=== PATIENT | male | born 1975 | race Caucasian/White ===

== ENCOUNTER 2023-06-29 18:15 | Inpatient (IN) | payer BC ==
[2023-06-29] MEDS ORDERED: ONDANSETRON 4 MG/2 ML VIAL ONE ×2 (18:42→19:46)
[2023-06-29] MEDS ORDERED: NA CHLORIDE 0.9% 1,000 ML ONE (18:43)
[2023-06-29] MEDS ORDERED: MORPHINE 4 MG/ML SYR ONE ×2 (18:43→19:46)
[2023-06-29 18:53] LABS: Absolute Lymphocytes (CBC) 1.5 K/uL (0.7-4.9); Hematocrit 45.4 % (39.6-49.0); Lymphocytes % 10.3 % (15.3-44.8); MCV 90.1 fL (80-100); MPV 8.5 fL (7.6-11.3); Platelets 235 thou/uL (152-406); Protime INR 1.07; RBC Red Blood Cell Count 5.04 M/uL (4.33-5.43)
[2023-06-29 19:07] LABS: Albumin 4.4 g/dL (3.4-5.0); Bilirubin Direct 0.2 mg/dL (0-0.2); Bilirubin Indirect, Calculated 0.6 mg/dL (0.2-0.8); Bilirubin Total 0.8 mg/dL (0.2-1.0); Magnesium 1.8 mg/dL (1.6-2.4); Potassium 3.7 mEq/L (3.5-5.1); Protein, Total 8.4 g/dL (6.4-8.2); Troponin High Sensitivity 3.6 pg/mL (<58.9)
--- NOTE | 2023-06-29 19:21 | RAD REPORT ---
EXAM DESCRIPTION: Fernandez Single View06/29/2023 6:48 pm CLINICAL HISTORY: vomiting COMPARISON: No comparisons TECHNIQUE: Portable AP view of the chest. FINDINGS: The lungs are clear. No pneumothorax or effusion. The cardiomediastinal contours are unre markable. IMPRESSION: No acute cardiopulmonary process.
--- NOTE | 2023-06-29 20:03 | RAD REPORT ---
EXAM DESCRIPTION: US - Abdomen Exam Limited - 06/29/2023 7:46 pm CLINICAL HISTORY: EPIGASTRIC PAIN COMPARISON: No comparisons TECHNIQUE: Sonographic grayscale and color flow images of the right upper abdominal quadrant were o btained. FINDINGS: The gallbladder demonstrates no discrete shadowing stones. A lobulated echogenic 1.3 cm fo cus present along the dependent portion of the body may represent lobulated sludge versus nonshadowin g stones. . No pericholecystic fluid. Gallbladder wall is mildly thickened from 4 mm. The common bile duct is normal measuring 5 mm. The liver demonstrates no findings of intrahepatic biliary dilatation. Hepatic parenchymal hyperechog enicity suggesting steatosis. IMPRESSION: Lobulated gallbladder sludge versus small nonshadowing stones. Mild gallbladder wall thickening. Findings suggest acute cholecystitis in the appropriate clinical se tting. Diffuse hepatic steatosis.
[2023-06-29] MEDS ORDERED: PIPERACIL/TAZO 3.375 GM VIAL IV ONE (20:27)
[2023-06-29] MEDS ORDERED: NA CHLORIDE 0.9% 100 ML ONE (20:27)
--- NOTE | 2023-06-29 21:41 | RAD REPORT ---
EXAM DESCRIPTION: CT - Abdomen Pelvis W Contrast - 06/29/2023 8:59 pm CLINICAL HISTORY: ABD PAIN COMPARISON: No comparisons TECHNIQUE: Thin cut axial CT imaging of the abdomen and pelvis was performed following intravenous a dministration of iodinated contrast. Multiplanar reformats were generated and reviewed. All CT scans are performed using dose optimization technique as appropriate and may include automated exposure control or mA/KV adjustment according to patient size. FINDINGS: No suspicious findings in the lung bases. The liver shows diffuse parenchymal hypoattenuation suggesting steatosis. Spleen, adrenal glands, and pancreas show no suspicious findings. Gallbladder and biliary tree are also without suspicious findi ng. Symmetric renal function is seen with no hydronephrosis or suspicious renal mass. No dilated bowel loops or bowel wall thickening. Appendix is unremarkable. No free air, free fluid or inflammatory stranding. No hernia, mass or bulky lymphadenopathy. The urinary bladder is without sig nificant finding. No suspicious bony findings. IMPRESSION: No acute intra-abdominal process. Diffuse hepatic steatosis.
[2023-06-29] MEDS ORDERED: HYDROMORPHONE HCL 1 MG/ML INJ ONE (22:10)
[2023-06-29] MEDS ORDERED: NA CHLORIDE 0.9% 2,000 ML ONE (22:10)
--- NOTE | 2023-06-29 23:22 | ER ---
Nurse's Notes [facility] Name: Randy Ochoa Age: 48 yrs Sex: Male : 1975 Arrival Date: 06/29/2023 Time: 18:15 Bed 19 Private MD: Diagnosis: Acute cholecystitis;Nausea with vomiting, unspecified;Hypertensive heart disease without heart failure Presentation: 06/29 18:29 Chief complaint: Patient states: N/V/D started at 5 AM with chills and severe upper ll1 abdominal pain. Coronavirus screen: Client denies travel out of the [place] in the last 14 days. At this time, the client does not indicate any symptoms associated with coronavirus-19. Ebola Screen: Patient denies travel to an Ebola-affected area in the 21 days before illness onset. Initial Sepsis Screen: Does the patient meet any 2 criteria? No. Patient's initial sepsis screen is negative. Does the patient have a suspected source of infection? Yes: Acute abdominal pain. Risk Assessment: Do you want to hurt yourself or someone else? Patient reports no desire to harm self or others. Onset of symptoms was June 29, 2023. 18:29 Method Of Arrival: Ambulatory ll1 18:29 Acuity: KARTHIK 2 ll1 Historical: - Allergies: 18:29 No Known Allergies; ll1 - PMHx: 18:29 Hypertensive disorder; Hypercholesterolemia; ll1 - Immunization history:: Adult Immunizations up to date. - Social history:: Smoking status: Patient denies any tobacco usage or history of. Screenin:40 [facility] ED Fall Risk Assessment (Adult) History of falling in the last 3 months, cm10 including since admission No falls in past 3 months (0 pts) Confusion or Disorientation No (0 pts) Intoxicated or Sedated No (0 pts) Impaired Gait No (0 pts) Mobility Assist Device Used No (0 pt) Altered Elimination No (0 pt) Score/Fall Risk Level 0 - 2 = Low Risk Oriented to surroundings, Maintained a safe environment, Hourly rounding (assess needs \T\ fall precautionary measures) done. Abuse screen: Denies threats or abuse. Denies injuries from another. Nutritional screening: No deficits noted. Tuberculosis screening: No symptoms or risk factors identified. Assessment: 18:38 General: Appears uncomfortable, Behavior is cooperative. Pain: Complains of pain in cm10 epigastric area Pain does not radiate. Pain currently is 10 out of 10 on a pain scale. Pain began suddenly. Neuro: No deficits noted. Level of Consciousness is awake, alert, obeys commands, Oriented to person, place, time, situation. Cardiovascular: No deficits noted. Capillary refill < 3 seconds Patient's skin is warm and dry. Respiratory: No deficits noted. Airway is patent Respiratory effort is even, unlabored, Respiratory pattern is regular, symmetrical. GI: Abdomen is distended, obese, Reports diarrhea, epigastric pain, nausea, vomiting. : No deficits noted. No signs and/or symptoms were reported regarding the genitourinary system. EENT: No deficits noted. No signs and/or symptoms were reported regarding the EENT system. 19:30 Reassessment: Patient appears in no apparent distress at this time. No changes from [facility] previously documented assessment. Patient and/or family updated on plan of care and expected duration. Pain level reassessed. Patient is alert, oriented x 3, equal unlabored respirations, skin warm/dry/pink. 20:30 Reassessment: Patient appears in no apparent distress at this time. No changes from [facility] previously documented assessment. Patient and/or family updated on plan of care and expected duration. Pain level reassessed. Patient is alert, oriented x 3, equal unlabored respirations, skin warm/dry/pink. 21:30 Reassessment: Patient appears in no apparent distress at this time. No changes from [facility] previously documented assessment. Patient and/or family updated on plan of care and expected duration. Pain level reassessed. Patient is alert, oriented x 3, equal unlabored respirations, skin warm/dry/pink. 22:30 Reassessment: Patient appears in no apparent distress at this time. No changes from 7 previously documented assessment. Patient and/or family updated on plan of care and expected duration. Pain level reassessed. Patient is alert, oriented x 3, equal unlabored respirations, skin warm/dry/pink. 23:30 Reassessment: Patient appears in no apparent distress at this time. Patient and/or jw7 family updated on plan of care and expected duration. Pain level reassessed. Patient is alert, oriented x 3, equal unlabored respirations, skin warm/dry/pink. Patient states feeling better. Patient states symptoms have improved. 06/30 11:22 Reassessment: attempted to call report to 2nd floor. no answer at this time. kc6 Vital Signs: 06/29 18:29 BP 169 / 128; Pulse 96; Resp 20; Temp 97.2; Pulse Ox 100% ; Weight 108.86 kg; Height 5 ll1 ft. 11 in. ; Pain 10/10; 19:00 BP 199 / 129; Pulse 60; Resp 20 S; Pulse Ox 100% on R/A; jw7 20:00 BP 174 / 110; Pulse 62; Resp 18 S; Pulse Ox 99% on R/A; jw7 21:00 BP 186 / 86; Pulse 63; Resp 20 S; Pulse Ox 96% on R/A; jw7 22:07 BP 202 / 118; Pulse 65; Resp 20 S; Pulse Ox 96% on R/A; jw7 23:00 BP 140 / 84; Pulse 85; Resp 18 S; Pulse Ox 95% on R/A; jw7 23:30 BP 128 / 90; Pulse 85; Resp 18 S; Pulse Ox 95% on R/A; jw7 18:29 Body Mass Index 33.47 (108.86 kg, 180.34 cm) ll1 18:29 Pain Scale: Adult ll1 ED Course: 18:19 Patient arrived in ED. mr 18:23 Vignesh Ochoa PA is PHCP. cp 18:23 Ck Frank MD is Attending Physician. cp 18:30 Triage completed. ll1 18:30 Arm band placed on Patient placed in an exam room, on a stretcher. ll1 18:37 No provider procedures requiring assistance completed. Initial lab(s) drawn, by la, cm10 sent to lab. Inserted saline lock: 20 gauge in right antecubital area, using aseptic technique. Blood collected. Patient maintains SpO2 saturation greater than 95% on room air. 18:40 Patient has correct armband on for positive identification. Provided Education on: ER cm10 process and procedures,. Client placed on continuous cardiac and pulse oximetry monitoring. NIBP monitoring applied. 18:45 Basic Metabolic Panel Sent. mb9 18:45 CBC with Diff Sent. mb9 18:45 LFT's Sent. mb9 18:45 Magnesium Sent. mb9 18:45 PT-INR Sent. mb9 18:45 Troponin HS Sent. mb9 18:50 XRAY Chest (1 view) In Process Unspecified. EDMS 18:53 EKG done, by ED staff, reviewed by Vignesh WILBURN. mb9 19:08 Report given to EVERTON Johnson. mb9 19:20 Elizabeth Lorenzo RN is Primary Nurse. jw7 19:48 US Abdomen Limited In Process Unspecified. EDMS 21:01 CT Abd/Pelvis - IV Contrast Only In Process Unspecified. EDMS 23:20 Alon Fink MD is Hospitalizing Provider. cp 06/30 07:00 Patient admitted, IV remains in place. kc6 Administered Medications: 06/29 18:49 Drug: NS 0.9% IV 1000 ml IV at 1 bolus Per protocol; 1000 mL bolus Route: IV; Rate: 1 cm10 bolus; Site: right antecubital; 18:49 Drug: morphine IVP or IV 4 mg IVP once over 4 mins Route: IVP; Infused Over: 4 mins; cm10 Site: right antecubital; 18:49 Drug: Ondansetron IVP 4 mg IVP once; over 2 minutes Route: IVP; Site: right antecubital;cm10 20:20 Drug: morphine IVP or IV 4 mg IVP once over 4 mins Route: IVP; Infused Over: 4 mins; jw7 Site: right antecubital; 20:20 Drug: Ondansetron IVP 4 mg IVP once; over 2 minutes Route: IVP; Site: right antecubital;jw7 21:50 Drug: Piperacillin-Tazobactam IVPB 3.375 grams IVPB once over 60 mins; (mix in NS 100 jw7 mL) Route: IVPB; Infused Over: 60 mins; Site: right antecubital; 22:35 Drug: NS 0.9% IV 1000 ml IV at 1 bolus Per protocol; 1000 mL bolus Route: IV; Rate: 1 jw7 bolus; Site: right antecubital; 22:35 Drug: HYDROmorphone IVP 1 mg IVP once Route: IVP; Site: right antecubital; jw7 22:59 Drug: NS 0.9% IV 1000 ml IV at 125 ml/hr continuous Route: IV; Rate: 125 ml/hr; Site: jw7 right antecubital; 23:20 CANCELLED (Physician Discretion): [id number] mg IVP once cp Medication: 18:39 VIS not applicable for this client. cm10 Outcome: 23:21 Decision to Hospitalize by Provider. cp 06/30 07:00 Admitted to ER Hold. Please see [facility] for further documentation. kc6 Condition: good Instructed on the need for admit, 11:38 Patient left the ED. kc6 Signatures: Dispatcher [employer] EDMS Maritza Rodriguez, Reg Reg mr Vignesh Ochoa PA PA cp Lewis, Lynsay RN RN ll1 Elizabeth Lorenzo RN RN jw7 Rochelle De Los Santos RN RN kc6 Maritza Davis, RN RN mb9 Jo-Ann Kaufman RN RN cm10
--- NOTE | 2023-06-29 23:22 | EDPHYS ---
Physician Documentation [facility] Name: Randy Ochoa Age: 48 yrs Sex: Male : 1975 Arrival Date: 06/29/2023 Time: 18:15 Bed 19 Private MD: ED Physician Ck Frank HPI: 06/29 18:45 This 48 yrs old Male presents to ER via Ambulatory with complaints of Chest Pain, cp Abdominal Pain, Vomiting. 18:45 Onset: The symptoms/episode began/occurred this morning. Associated signs and symptoms: cp Pertinent positives: nausea and vomiting, chest pain, Pertinent negatives: diarrhea, fever, testicular pain, vomiting blood. The symptoms are described as constant. Severity of pain: in the emergency department the pain is unchanged despite home interventions. 18:45 The patient presents with abdominal pain in the epigastric area. cp Historical: - Allergies: 18:29 No Known Allergies; ll1 - PMHx: 18:29 Hypertensive disorder; Hypercholesterolemia; ll1 - Immunization history:: Adult Immunizations up to date. - Social history:: Smoking status: Patient denies any tobacco usage or history of. ROS: 18:50 Constitutional: Positive for poor PO intake, Negative for body aches, chills, fever, cp 18:50 Abdomen/GI: Positive for abdominal pain, nausea and vomiting, anorexia, of the cp epigastric area, Negative for diarrhea, constipation, hematemesis, 18:50 Eyes: Negative for injury, pain, redness, and discharge, cp 18:50 Cardiovascular: Positive for chest pain, Negative for edema, palpitations, cp 18:50 Respiratory: Negative for cough, shortness of breath, wheezing, 18:50 Neuro: Negative for altered mental status, dizziness, headache, syncope, weakness, 18:50 All other systems are negative, Exam: 18:55 ECG was reviewed by the Attending Physician. cp 18:57 Constitutional: The patient appears in no acute distress, alert, awake, cp non-diaphoretic, non-toxic, well developed, well nourished, in obvious pain, uncomfortable, 18:57 Head/Face: Normocephalic, atraumatic. cp 18:57 Eyes: Periorbital structures: appear normal, Conjunctiva: normal, no exudate, no injection, Sclera: no appreciated abnormality, Lids and lashes: appear normal, bilaterally, 18:57 ENT: External ear(s): are unremarkable, Nose: is normal, Mouth: Lips: moist, Oral mucosa: pink and intact, moist, Posterior pharynx: Airway: no evidence of obstruction, patent, 18:57 Neck: ROM/movement: is normal, is supple, without pain, no range of motions limitations, no meningismus, no nuchal rigidity, 18:57 Chest/axilla: Inspection: normal, Palpation: is normal, no crepitus, no tenderness, 18:57 Cardiovascular: Rate: normal, Rhythm: regular, Edema: is not appreciated, JVD: is not appreciated, 18:57 Respiratory: the patient does not display signs of respiratory distress, Respirations: normal, no use of accessory muscles, no retractions, labored breathing, is not present, Breath sounds: are clear throughout, no decreased breath sounds, no stridor, no wheezing, 18:57 Abdomen/GI: Inspection: abdomen appears normal, Bowel sounds: active, all quadrants, Palpation: soft, in all quadrants, severe abdominal tenderness, in the epigastric area, right upper quadrant and left upper quadrant, rebound tenderness, is not appreciated, voluntary guarding, is elicited in the epigastric area, right upper quadrant and left upper quadrant, 18:57 Back: CVA tenderness, is absent, Vital Signs: 18:29 BP 169 / 128; Pulse 96; Resp 20; Temp 97.2; Pulse Ox 100% ; Weight 108.86 kg; Height 5 ll1 ft. 11 in. ; Pain 10/10; 19:00 BP 199 / 129; Pulse 60; Resp 20 S; Pulse Ox 100% on R/A; jw7 20:00 BP 174 / 110; Pulse 62; Resp 18 S; Pulse Ox 99% on R/A; jw7 21:00 BP 186 / 86; Pulse 63; Resp 20 S; Pulse Ox 96% on R/A; jw7 22:07 BP 202 / 118; Pulse 65; Resp 20 S; Pulse Ox 96% on R/A; jw7 23:00 BP 140 / 84; Pulse 85; Resp 18 S; Pulse Ox 95% on R/A; jw7 23:30 BP 128 / 90; Pulse 85; Resp 18 S; Pulse Ox 95% on R/A; jw7 18:29 Body Mass Index 33.47 (108.86 kg, 180.34 cm) ll1 18:29 Pain Scale: Adult ll1 MDM: 18:23 Patient medically screened. cp 22:05 Data reviewed: vital signs, nurses notes, lab test result(s), EKG, radiologic studies, cp CT scan, ultrasound. 22:05 Consideration of Admission/Observation Patient was admitted/placed on observation. I cp considered the following discharge prescriptions or medication management in the emergency department Medications were administered in the Emergency Department. See MAR. Independent interpretation of the following test(s) in the Emergency Department EKG: See my EKG interpretation above. Care significantly affected by the following chronic conditions: Hypertension. 23:15 Management of patient was discussed with the following: Manager Outpatient: DR Aleks jacobo cp admit to his service for surgical consult after discussion. 23:15 Response to treatment: the patient's symptoms have markedly improved after treatment. 06/29 18:38 Order name: Basic Metabolic Panel; Complete Time: 20:05 06/29 20:14 Interpretation: Normal except: GLUC 126; GFR 75. 06/29 18:38 Order name: CBC with Diff; Complete Time: 20:05 06/29 20:15 Interpretation: Normal except: WBC 14.90; SERGIO% 83.5; LYM% 10.3; NEUT A 12.4. 06/29 18:38 Order name: LFT's; Complete Time: 20:05 cp 06/29 18:38 Order name: Magnesium; Complete Time: 20:05 06/29 18:38 Order name: PT-INR; Complete Time: 20:05 06/29 18:38 Order name: Troponin HS; Complete Time: 20:05 06/29 18:38 Order name: Lipase; Complete Time: 20:05 cp 06/29 20:06 Order name: Lactate w/ 2H reflex if indic.; Complete Time: 21:39 cp 06/29 21:39 Interpretation: Abnormal: LAC 2.4. cp 06/29 20:06 Order name: Blood Culture Adult (2) cp 06/29 21:55 Order name: SARS RAPID cp 06/30 00:08 Order name: Basic Metabolic Panel EDMS 06/30 00:08 Order name: Basic Metabolic Panel EDMS 06/30 00:08 Order name: CBC with Automated Diff EDMS 06/30 00:08 Order name: CBC with Automated Diff EDMS 06/30 00:08 Order name: Lipase EDMS 06/30 00:08 Order name: Lipase EDMS 06/30 00:08 Order name: Liver (Hepatic) Function EDMS 06/30 00:08 Order name: Liver (Hepatic) Function EDMS 06/30 00:56 Order name: Lactate Sepsis 2 HR Follow-up EDMS 06/29 18:38 Order name: XRAY Chest (1 view); Complete Time: 20:05 cp 06/29 18:45 Order name: US Abdomen Limited; Complete Time: 20:05 cp 06/29 20:06 Order name: CT Abd/Pelvis - IV Contrast Only; Complete Time: 21:51 cp 06/29 18:38 Order name: EKG; Complete Time: 18:39 cp 06/29 18:38 Order name: Cardiac monitoring; Complete Time: 18:45 cp 06/29 18:38 Order name: EKG - Nurse/Tech; Complete Time: 18:53 cp 06/29 18:38 Order name: IV Saline Lock; Complete Time: 18:45 cp 06/29 18:38 Order name: Labs collected and sent; Complete Time: 18:45 cp 06/29 18:38 Order name: O2 Per Protocol; Complete Time: 18:45 cp 06/29 18:38 Order name: O2 Sat Monitoring; Complete Time: 18:45 cp 06/29 21:57 Order name: Vital Signs; Complete Time: 22:05 cp EC:55 Rate is 66 beats/min. Rhythm is regular. IN interval is normal. QRS interval is normal. cp QT interval is normal. T waves are Inverted in lead aVR. Interpreted by me. Reviewed by me. Administered Medications: 18:49 Drug: NS 0.9% IV 1000 ml IV at 1 bolus Per protocol; 1000 mL bolus Route: IV; Rate: 1 cm10 bolus; Site: right antecubital; 18:49 Drug: morphine IVP or IV 4 mg IVP once over 4 mins Route: IVP; Infused Over: 4 mins; cm10 Site: right antecubital; 18:49 Drug: Ondansetron IVP 4 mg IVP once; over 2 minutes Route: IVP; Site: right antecubital;cm10 20:20 Drug: morphine IVP or IV 4 mg IVP once over 4 mins Route: IVP; Infused Over: 4 mins; jw7 Site: right antecubital; 20:20 Drug: Ondansetron IVP 4 mg IVP once; over 2 minutes Route: IVP; Site: right antecubital;jw7 21:50 Drug: Piperacillin-Tazobactam IVPB 3.375 grams IVPB once over 60 mins; (mix in NS 100 jw7 mL) Route: IVPB; Infused Over: 60 mins; Site: right antecubital; 22:35 Drug: NS 0.9% IV 1000 ml IV at 1 bolus Per protocol; 1000 mL bolus Route: IV; Rate: 1 jw7 bolus; Site: right antecubital; 22:35 Drug: HYDROmorphone IVP 1 mg IVP once Route: IVP; Site: right antecubital; jw7 22:59 Drug: NS 0.9% IV 1000 ml IV at 125 ml/hr continuous Route: IV; Rate: 125 ml/hr; Site: jw7 right antecubital; 23:20 CANCELLED (Physician Discretion): [id number] mg IVP once cp Disposition Summary: 06/29/23 23:21 Hospitalization Ordered Notes: Hospitalization Status: Inpatient Admission cp Provider: Alon Fink cp Condition: Stable cp Problem: new cp Symptoms: have improved cp Bed/Room Type: Standard cp Location: Telemetry/MedSurg (Inpatient)(06/30/23 11:04) Room Assignment: 230(06/30/23 11:04) eb Diagnosis - Acute cholecystitis cp - Nausea with vomiting, unspecified cp - Hypertensive heart disease without heart failure cp Forms: - Medication Reconciliation Form cp - SBAR form cp - Leadership Thank You Letter cp Addendum: 07/03/2023 07:10 Co-signature as Attending Physician, Ck Frank MD I reviewed the patient's care r n provided by the Advanced Practice Provider and agree with the diagnosis and treatment plan. Signatures: Dispatcher [employer] Ck Ray MD MD rn Page, Corey, PA PA cp Botello, Elizabeth eb Lewis, Lynsay, RN RN ll1 Elizabeth Lorenzo RN RN jw7 Lyndsay Betancourt rv1 Jo-Ann Kaufman RN RN cm10 Corrections: (The following items were deleted from the chart) 06/29 23:20 23:12 hydrALAZINE IVP 20 mg IVP once ordered. cp cp 23:56 23:21 Telemetry/MedSurg (Inpatient) cp rv1 :56 23:21 cp rv1 06/30 11:04 06/29 23:56 [facility] ER HOLD rv1 eb 06/30 11:04 06/29 23:56 ERHOLD- rv1 eb
[2023-06-30 00:50] LABS: SARS-CoV-2 Antigen Rapid Res Negative (Negative)
[2023-06-30 01:15] VITALS: BMI 33.3
[2023-06-30] MEDS ORDERED: NA CHLORIDE 0.9% 100 ML ONE ×2 (05:54→10:36)
[2023-06-30] MEDS ORDERED: PIPERACIL/TAZO 3.375 GM VIAL IV ONE ×2 (05:54→10:36)
[2023-06-30] MEDS ORDERED: D5 0.45 NS 1,000 ML IV ONE ×2 (05:54→08:05)
[2023-06-30] MEDS: D5 0.45 NS 1,000 ML IV SCH (06:00)
[2023-06-30] MEDS: PIPER TAZO 3.375 GM in NA CHLORIDE 0.9% 100 ML IV SCH (06:02)
[2023-06-30] MEDS: HYDROMORPHONE HCL 1 MG/ML INJ IV PRN (07:01)
[2023-06-30] MEDS ORDERED: HYDROMORPHONE HCL 1 MG/ML INJ ONE (11:15)
--- NOTE | 2023-06-30 13:03 | P.CNS ---
Date of Consult: 06/30/23 PC: This patient presented to the emergency room with severe right upper quadrant abdominal pain for diagnosis and treatment. HPC: Patient is been having upper abdominal pain since yesterday. Located in the upper part of his abdomen radiating to his chest. Pain became worse, [he has had previous episodes] and the came in for evaluation. PSHx: Previous umbilical hernia repair PMHx: Hypertension, hypercholesterolemia Social Hx: No known allergies Sys R: No cough, wheeze, shortness of breath. No chest pain or palpitations. 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 O/E: Awake alert vital signs are stable HEENT: Not jaundiced Chest: Chest movement equal bilaterally Abd: Tender in the right upper quadrant [place]: Intact Data: Ultrasound demonstrates sludge at the outflow, no dilatation of the common bile duct Impression: Cholecystitis with cholelithiasis, biliary colic Plan: Taken the operating room for laparoscopic possible open cholecystectomy with a cholangiogram. The risks of this procedure have been discussed. The possibility of bleeding, infection, injury to bile ducts blood vessels and intestines has been described. The possible need for an open and or further surgeries and procedures was discussed. He understands and wants us to proceed.
[2023-06-30] MEDS: ONDANSETRON 4 MG/2 ML VIAL IV PRN (13:50)
[2023-06-30] MEDS ORDERED: ROCURONIUM 50 MG/5 ML VIAL IV ONE (14:57)
[2023-06-30] MEDS ORDERED: propofoL 200 MG/20 ML VIAL IV ONE ×2 (14:57→16:57)
[2023-06-30] MEDS ORDERED: LIDOCAINE 2% MPF 5 ML VIAL ONE (14:57)
[2023-06-30] MEDS ORDERED: MIDAZOLAM HCL 2 MG/2 ML INJ ONE (14:58)
[2023-06-30] MEDS ORDERED: FENTANYL CITR 100 MCG/2 ML ONE ×2 (14:58→16:54)
[2023-06-30] MEDS: Ringers Lactate 1,000 ML IV ONE (15:25)
[2023-06-30] MEDS: SUGAMMADEX SODIUM 200 MG/2 ML VIAL IV ONE (15:47)
[2023-06-30] MEDS: SUCCINYLCHOLINE 20 MG/ML (10 ML) IV ONE (15:47)
[2023-06-30] MEDS: BUPIVACAINE 0.5% PF 10 ML VIAL ONE (16:44)
[2023-06-30] MEDS ORDERED: ONDANSETRON 4 MG/2 ML VIAL ONE (17:22)
--- NOTE | 2023-06-30 17:31 | P.OP ---
Preoperative diagnosis: Cholecystitis with biliary colic Postoperative diagnosis: The same Primary procedure: Laparoscopic cholecystectomy Secondary procedure: Cholangiogram Anesthesia: General Estimated blood loss: Less than 20 cc Specimen: Gallbladder and contents Operative Technique: The patient brought the operating room and placed supine on the table. After the induction of adequate general endotracheal anesthesia, the area of the abdomen was prepped with a DuraPrep solution, he was draped in the usual aseptic manner. Attention was turned towards the left side of the abdomen just lateral to the umbilicus. The patient has had a previous repair. We try to go just at the level of the outer border of the rectus sheath. The skin incision was made. Is brought down through the skin and subcutaneous tissue. The Visiport was used to enter the peritoneal cavity and created pneumoperitoneum to approximately 12 mmHg. It was noted there were marked amount of adhesions ar ound the umbilicus in the area where the patient had a previous hernia repair. The under direct vision a 5 mm trocar was placed in the upper midline, and 2 others on the right lateral side of the abdomen. We were used able now to clear the omental adhesions around the umbilicus back using blunt and sharp dissection. This having been done attention was turned towards the gallbladder itself. With the patient placed in Trendelenburg and the table tilted to the left we could visualize the right upper quadrant. The omentum was swept down and the gallbladder was identified. A grasper was placed on the fundus of the gallbladder. It was noted to be markedly distended with edematous rangel. A opening was made into the gallbladder using the aspirating needle and its contents were withdrawn from the gallbladder itself. We were now able to place a grasper on the body of the gallbladder and another down by Chapa's pouch. Applying lateral traction we just expose the cystic duct and artery. These were dissected out. A clip was placed between the gallbladder and the cystic duct. An opening was made into the cystic duct through which we have now obtained a normal intraoperative cholangiogram we could see good flow of contrast into the duodenum, no filling defects were noted. The catheter was withdrawn. Clips were placed on the distal portion of the cystic duct. The cystic duct was transected. The cystic artery was identified and clipped and divided in the usual manner. The gallbladder was now dissected free from the liver bed, placed into the Endo Catch, and brought out through the 12 mm trocar site. The abdomen was inspected at this point to ensure adequate hemostasis. This having been ensured the right upper quadrant was gently irrigated with a saline solution. T he pneumoperitoneum attention was turned towards the towards the 10 mm trocar site. This was closed using the Endo Close and an absorbable stitch. The pneumoperitoneum was now collapsed, the sutures tied, and ting applied to the skin. At the end of the procedure he was in a stable condition was sent to the recovery room. Needle sponge instrument count were correct. No drains were placed. Complications: None Transferred to: Recovery Room Condition: Good
[2023-06-30] MEDS: MEPERIDINE HCL 25 MG/ML SYR ONE (17:40)
[2023-06-30] MEDS: HYDROMORPHONE HCL 1 MG/ML INJ ONE (17:49)
[2023-06-30] MEDS: HYDRALAZINE HCL 20 MG/ML VIAL ONE (17:58)
[2023-06-30] MEDS: FENTANYL CITR 100 MCG/2 ML ONE (18:20)
[2023-06-30 18:21] VITALS: O2SAT 97
[2023-06-30] MEDS: HYDROCODONE/APAP 7.5/325 MG TAB PO PRN (20:47)
--- NOTE | 2023-06-30 21:00 | RAD REPORT ---
EXAM DESCRIPTION: RAD - Cholangiogram Oper-Xray Or - 06/30/2023 7:51 pm CLINICAL HISTORY: LAP MAHNAZ W/ IOC COMPARISON: None available. FINDINGS: A single image was sent to PACS, documenting fluoroscopy used during intraoperative cholan giography. No radiologist was available for the procedure, nor will any image interpretation he provi ded. Please refer to the procedural report for additional details. Fluoroscopy time: 0.1 Minutes. IMPRESSION: Documentation of fluoroscopy utilization as above.
[2023-07-01] MEDS: PROMETHAZINE INJ 25 MG/ML AMP IV PRN (11:37)
[2023-07-01] MEDS: PROMETHAZINE INJ 25 MG/ML AMP IV ONE (12:17)
[2023-07-01] MEDS: METOPROLOL TAR 50 MG TAB PO SCH (12:55)
[2023-07-01] MEDS: LOSARTAN POTASSIUM 50 MG TABLET PO SCH (12:55)
[2023-07-01 13:18] VITALS: BP 142/75
[2023-07-01 13:19] VITALS: TEMP 97.6
--- NOTE | 2023-07-01 15:06 | P.DS ---
Admission Date: 06/30/23 Discharge Date: 07/01/23 Disposition: ROUTINE DISCHARGE Discharge Condition: GOOD Reason for Admission: Acute postoperative abdominal pain Procedures: Laparoscopic cholecystectomy, intraoperative cholangiogram Brief History of Present Illness: Patient presented the emergency room with severe abdominal pain for diagnosis and treatment. Hospital Course: Patient presented to the emergency room was evaluated and found to have cholecystitis with biliary colic. He was brought to the operating room where he underwent a laparoscopic cholecystectomy with an intraoperative cholangiogram that was negative. He tolerated the procedure well but was admitted for observation and pain control. This morning he has been having headaches, but they appear to have gone. He he had some nausea, but now that appears to have resolved. At this point he is deemed fit for discharge. Vital Signs/Physical Exam: Temp Pulse Resp BP Pulse Ox 97.6 F 71 16 142/75 H 99 07/01/23 12:00 07/01/23 12:55 07/01/23 12:00 07/01/23 12:55 07/01/23 12:00 Laboratory Data at Discharge: WBC 14.90 thou/uL (4.3-10.9) H 06/29/23 18:40 Hgb 15.8 g/dL (13.6-17.9) 06/29/23 18:40 Hct 45.4 % (39.6-49.0) 06/29/23 18:40 Plt Count 235 thou/uL (152-406) 06/29/23 18:40 PT 11.7 SECONDS (9.5-12.5) 06/29/23 18:40 INR 1.07 06/29/23 18:40 Sodium 141 mEq/L (136-145) 06/29/23 18:40 Potassium 3.7 mEq/L (3.5-5.1) 06/29/23 18:40 BUN 16 mg/dL (7-18) 06/29/23 18:40 Creatinine 1.21 mg/dL (0.70-1.30) 06/29/23 18:40 Glucose 126 mg/dL (74-106) H 06/29/23 18:40 Magnesium 1.8 mg/dL (1.6-2.4) 06/29/23 18:40 Total Bilirubin 0.8 mg/dL (0.2-1.0) 06/29/23 18:40 AST 27 U/L (15-37) 06/29/23 18:40 ALT 51 U/L (16-61) 06/29/23 18:40 Alkaline Phosphatase 56 U/L (45-117) 06/29/23 18:40 Lipase 44 U/L (13-75) 06/29/23 18:40 Home Medications: Losartan Potassium 100 mg PO DAILY 06/30/23 Metoprolol Tartrate 50 mg PO DAILY 06/30/23 Physician Discharge Instructions: DC IV, DC home. He may shower. Change dressings as needed. Diet as tolerated. Milk of magnesia as needed. Pain medicine as required. Continue incentive spirometry. Any questions or problems, go to the emergency room, or contact me. Call my office early this week for a follow-up appointment. Diet: Regular Activity: Ad cailin Followup: NONE,NONE [Primary Care Provider] -
--- NOTE | 2023-07-02 14:36 | EKG ---
Test Date: 2023-06-29 Test Time: 18:49:43 Manager Audit: MB MEASUREMENT RESULTS: Intervals: Rate: 66 MI: 164 QRSD: 88 QT: 410 QTc: 429 [place]: P: 74 MI: 164 QRS: 76 T: 61 INTERPRETIVE STATEMENTS: Sinus rhythm with marked sinus arrhythmia Otherwise normal ECG No previous ECG available for comparison Electronically Signed On 07-02-23 14:29:16 [employer] by Yeyo Zimmerman
== END 2023-07-01 16:20 | disposition home or self-care (01) | DRG 419 ==
LOC: ER 18:15 → ERHOLD 06-30 00:03 → 2ND 06-30 11:35
PROVIDERS: ADMIT Surgery; ATTEND Surgery
PROC: BF522Z0 Other Imaging of Gallbladder using Fluorescing Agent, Intraoperative (ICD-10-PCS; 2023-06-30)
PROC: 0FT44ZZ Resection of Gallbladder, Percutaneous Endoscopic Approach (ICD-10-PCS; principal; 2023-06-30 14:45)
DX: K80.42 Calculus of bile duct with acute cholecystitis without obstruction (principal); E78.00 Pure hypercholesterolemia, unspecified; I10 Essential (primary) hypertension; Z11.52 Encounter for screening for COVID-19; Z79.899 Other long term (current) drug therapy
CPT/HCPCS: 36415; 71045; 74177; 74300; 76705; 80048; 80076; 83605; 83690; 83735; 84484; 85025; 85610; 87040; 87811; 88304; 93005; 96374; 96375; 99285; J0360; J1170; J2001; J2175; J2250; J2405; J2543; J2550; J2704; J3010; J7030; J7120; J7799; Q9967